=== PATIENT | male | born 1975 | race Caucasian/White ===

== ENCOUNTER 2024-03-25 10:04 | Emergency (ER) | payer MEDICARE ==
[2024-03-25] MEDS ORDERED: cefTRIAXone SODIUM 2 GM in SODIUM CHLORIDE 0.9% 100 ML IV ONE (10:10)
[2024-03-25] MEDS ORDERED: Diph, Acellular Pertussis, Tet 0.5 ML/VIAL (Tdap) SDV IM ONE (10:10)
[2024-03-25 10:34] VITALS: BP 119/94
[2024-03-25 10:40] LABS: EOS% 2.9 % (0-8); HEMATOCRIT 48.7 % (39.0-50.0); HEMOGLOBIN 16.9 g/dl (14.0-18.0); IMMATURE GRANULOCYTES 0.1 % (0.0-5.0); LYMPH% 28.1 % (15-41); MEAN CELL VOLUME 92.2 fL CALC (80.0-100.0); MEAN CORPUSCULAR HGB CONC 34.7 g/dL CAL (32.0-36.0); MONO% 7.2 % (2-13); NEUT# 5.74 thou/uL (1.82-7.42); NEUT% 60.7 % (42-76); RED BLOOD COUNT 5.28 mill/uL (4.70-6.10); RED CELL DISTRI WIDTH 12.9 % (11.5-15.5)
[2024-03-25 10:45] VITALS: BP 121/88
[2024-03-25 10:58] LABS: ALBUMIN 4.6 g/dL (3.2-5.0); BILIRUBIN, TOTAL 0.9 mg/dL (0.2-1.3); CREATININE 1.2 mg/dL (0.7-1.3); TOTAL PROTEIN 7.5 g/dL (6.3-8.2)
[2024-03-25 11:00] VITALS: BP 129/85
[2024-03-25] MEDS ORDERED: ONDANSETRON HCl 4 MG/2 ML SDV IV ONE (11:05)
[2024-03-25 11:27] VITALS: BP 129/85
== END 2024-03-25 11:29 ==
LOC: ED 10:04
PROVIDERS: Family Medicine
PROC: 0HQGXZZ Repair Left Hand Skin, External Approach (ICD-10-PCS; principal; 2024-03-25)
DX: S56.426A Laceration of extensor muscle, fascia and tendon of left ring finger at forearm level, initial encounter (principal); S56.126A Laceration of flexor muscle, fascia and tendon of left ring finger at forearm level, initial encounter; S61.217A Laceration without foreign body of left little finger without damage to nail, initial encounter; W31.89XA Contact with other specified machinery, initial encounter; Y93.89 Activity, other specified